=== PATIENT | male | born 1960 | race Caucasian/White ===

== ENCOUNTER 2017-08-25 07:45 | Emergency (ER) | payer BC ==
[~2017-08-25] VITALS: Ht 170.2 cm; Wt 101.0 kg
[~2017-08-25 07:45] MED LIST: AMOX1TAB10 PO; CETI10CA PO; GLYB1.252 PO; HYDR-3672 PO; METF500T3 PO
[2017-08-25 07:47] VITALS: Ht 170.2 cm; Wt 101.0 kg
[2017-08-25] MEDS ORDERED: OXYMETAZOLINE 0.05% 15 ML NAS SPRAY NASAL ONE (08:00)
[2017-08-25 09:45] VITALS: BP 119/92; PULSE 87; RESP 18
--- NOTE | 2017-08-25 11:27 | ERD ---
ER Documentation Chief Complaint Chief Complaint nose bleed onset today , was seen at another er on sunday for same HPI international account executive was used. The patient presents with epistaxis. The patient was seen at an outside hospital 2 days ago for similar symptoms. Today he presents with gross epistaxis from bilateral nares right greater than left. He denies any other easy bruising or bleeding, no headache no chest pain or no shortness of breath. ROS All systems reviewed and are negative except as per history of present illness. Medications Home Meds Active Scripts Amox Tr/Potassium Clavulanate (Amox Tr-K Clv 875-125 Mg Tab) 1 Tab Tablet, 1 TAB PO BID, #20 TAB Prov:CECI CASTRO SURGICAL TECHNOLOGIST 02/23/16 Hydralazine Hcl* (Hydralazine Hcl*) 50 Mg Tab, 50 MG PO Q6, #10 TAB Prov:CECI CASTRO SURGICAL TECHNOLOGIST 02/23/16 Cetirizine Hcl* (Zyrtec*) 10 Mg Capsule, 10 MG PO DAILY, #30 TAB.CHEW Prov:CECI CASTRO SURGICAL TECHNOLOGIST 02/22/16 Reported Medications Metformin* (Glucophage* XR) Unknown Strength Tab.sr.24h, PO DAILY, #30 TAB 02/22/16 Glyburide* (Glyburide*) Unknown Strength Tablet, PO WITH BREAKFAST, #30 TAB 02/22/16 Allergies Allergies: Coded Allergies: No Known Allergy (Verified , 01/27/14) PMhx/Soc History of Surgery: Yes (Gall Bladder removal) Anesthesia Reaction: No Hx Neurological Disorder: No Hx Respiratory Disorders: No Hx Cardiac Disorders: Yes (HTN; cholesterol) Hx Psychiatric Problems: No Hx Miscellaneous Medical Probl: Yes (DM2) Hx Alcohol Use: No Hx Substance Use: No Hx Tobacco Use: No Smoking Status: Never smoker FmHx Family History: No diabetes Physical Exam Vitals Vital Signs Date Time Temp Pulse Resp B/P Pulse Ox O2 Delivery O2 Flow Rate FiO2 08/25/17 09:45 87 18 119/92 95 Room Air 08/25/17 07:47 98.2 122 18 158/98 99 Physical Exam General: Well developed, well nourished, no acute distress Head: Normocephalic, atraumatic. Eyes: EOM intact ENT: Bleeding from bilateral nares right greater than left with dryness and cracking of the anterior Venous plexus. Neck: Full ROM Respiratory: No respiratory distress Cardiovascular: Good capillary refill Abdominal: Nondistended : Deferred MSK: No edema, no unilateral swelling, 5/5 strength Neurologic: Alert and oriented, moving all extremities, normal speech, steady gait Skin: No rash, no petechia or purpura Psych: Normal mood Results 24 hrs Current Medications Medications (Trade) Dose Ordered Sig/Lakeisha Route PRN Reason Start Time Stop Time Status Last Admin Dose Admin Oxymetazoline HCl (Afrin [place]) 2 spray ONCE ONCE NASAL 08/25/17 08:00 08/25/17 08:01 DC Procedures/MDM The patient's bilateral nares were packed with Afrin-soaked the patient cotton swabs. They are left in for 10 minutes and removed intact. On repeat inspection there is no retained foreign body. Has no further bleeding. The patient has no signs or symptoms concerning for coagulopathy. No indication for nasal packing. The patient can be safely discharged home. Education on how to control epistaxis was advised. I advised humidifier and Vaseline on the exterior nose prior to going to sleep. We discussed follow up with the patient's primary care doctor within 24 to 48 hours as needed. We also discussed return to the emergency room for worsening symptoms or worsening condition. Outpatient referral: [None required] Departure Diagnosis: Primary Impression: Epistaxis Condition: Stable Patient Instructions: Epistaxis (Adult) Referrals: [facility]) Usted se womack hecho un examen mdico de control que le indica que no est en laureano condicin que requiera tratamiento urgente en el Departamento de Emergencia. Un estudio ms profundo y el tratamiento de basurto condicin pueden esperar sin ningn riesgo hasta que usted sea atendida/o en el consultorio de basurto mdico o laureano cl jeffery. Es responsabilidad suya arreglar laureano leah para el seguimiento del fritz. MANEJO DE CONDICIONES NO URGENTES EN EL FUTURO 1) Si usted tiene un mdico de atencin primaria: Usted debera llamar a basurto mdico de atencin primaria antes de venir al departamento de emergencia. Despus de las horas de consultorio, basurto doctor o basurto asociado/a est disponible por telfono. El mdico o enfermero de [place] en el servicio telefnico puede asesorarle por ella medio para atender el problema, o fritz contrario se puede programar laureano leah. 2) Si usted no tiene un mdico de atencin primaria: Llame al mdico o clnica de referencia que aparece abajo arlene las horas de consultorio para hacer laureano leah para que le vean. CLINICAS: [facility] [phone] [facility] [phone] [facility] [phone] [facility] [phone] [address] [facility]. [facility] [phone] [address] [facility] [phone] [address] [facility]. [facility] () Usted se womack hecho un examen mdico de control que le indica que no est en laureano condicin que requiera tratamiento urgente en el Departamento de Emergencia. Un estudio ms profundo y el tratamiento de basurto condicin pueden esperar sin ningn riesgo hasta que usted sea atendida/o en el consultorio de basurto mdico o laureano cl jeffery. Es responsabilidad suya arreglar laureano leah para el seguimiento del fritz. MANEJO DE CONDICIONES NO URGENTES EN EL FUTURO 1) Si usted tiene un mdico de atencin primaria: Usted debera llamar a basurto mdico de atencin primaria antes de venir al departamento de emergencia. Despus de las horas de consultorio, basurto doctor o basurto asociado/a est disponible por telfono. El mdico o enfermero de [place] en el servicio telefnico puede asesorarle por ella medio para atender el problema, o fritz contrario se puede programar laureano leah. 2) Si usted no tiene un mdico de atencin primaria: Llame al mdico o condado institucions de referencia que aparece abajo arlene las horas de consultorio para hacer laureano leah para que le vean. SI USTED NO PUEDE PAGAR PARA KIMBER UN MEDICO puede ir a: [facility] [address] [place] [address] [facility] [address] [place] [address] [facility] [address] [place] [address] [facility] [address] [place], [place] [id number] Additional Instructions: Llame al doctor nombrado abajo (Referral Sources) MAANA y joe laureano LEAH PARA DENTRO DE LAUREANO SEMANA. Dgale a la secretaria que nosotros le instruimos hacer esta leah.Avise o llame si basurto condicin se empeora antes de la leah. TOSIN RITTER MD Aug 25, 2017 11:27
== END 2017-08-25 10:00 | disposition home or self-care (01) ==
LOC: E/R 07:45
DX: R04.0 Epistaxis (principal); I10 Essential (primary) hypertension; E11.9 Type 2 diabetes mellitus without complications; Z79.84 Long term (current) use of oral hypoglycemic drugs

== ENCOUNTER 2019-03-31 06:10 | Emergency (ER) | payer BC ==
[~2019-03-31] VITALS: Ht 165.1 cm; Wt 107.1 kg
[2019-03-31 06:13] VITALS: BP 164/98; PULSE 98; RESP 18; Ht 165.1 cm; Wt 107.1 kg
[2019-03-31] MEDS ORDERED: NAPR-985 PO (07:29)
--- NOTE | 2019-03-31 08:54 | ERD ---
ER Documentation Chief Complaint Chief Complaint R FFOT PAIN X'S 3 DAYS HPI 58-year-old male presenting with right foot pain x3 weeks. Patient states it's worse when he walks. He has been taking ibuprofen 800 mg with mild alleviation of symptoms. He denies any recent traumatic injury or accident. He is never had this before. He denies any numbness or tingling. Medical history is diabetes, hypertension and hypercholesterolemia. Surgical history is cystectomy. NKDA. Social history denies ROS All systems reviewed and are negative except as per history of present illness. Medications Home Meds Active Scripts Naproxen* (Naprosyn*) 500 Mg Tablet, 500 MG PO BID PRN for PAIN AND/OR INFLAMMATION, #30 TAB Prov:ORLY EDWARDS PA-C 03/31/19 Amox Tr/Potassium Clavulanate (Amox Tr-K Clv 875-125 Mg Tab) 1 Tab Tablet, 1 TAB PO BID, #20 TAB Prov:CECI CASTRO BIZTALK ARCHITECT 02/23/16 Hydralazine Hcl* (Hydralazine Hcl*) 50 Mg Tab, 50 MG PO Q6, #10 TAB Prov:CECI CASTRO BIZTALK ARCHITECT 02/23/16 Cetirizine Hcl* (Zyrtec*) 10 Mg Capsule, 10 MG PO DAILY, #30 TAB.CHEW Prov:CECI CASTRO BIZTALK ARCHITECT 02/22/16 Reported Medications Metformin* (Glucophage* XR) Unknown Strength Tab.sr.24h, PO DAILY, #30 TAB 02/22/16 Glyburide* (Glyburide*) Unknown Strength Tablet, PO WITH BREAKFAST, #30 TAB 02/22/16 Allergies Allergies: Coded Allergies: No Known Allergy (Verified , 01/27/14) PMhx/Soc History of Surgery: Yes (cholecystectomy) Anesthesia Reaction: No Hx Neurological Disorder: No Hx Respiratory Disorders: No Hx Cardiac Disorders: Yes (htn) Hx Psychiatric Problems: No Hx Miscellaneous Medical Probl: Yes (DM2) Hx Alcohol Use: Yes Hx Substance Use: No Hx Tobacco Use: No Smoking Status: Never smoker FmHx Family History: No diabetes, No coronary disease, No other Physical Exam Vitals Vital Signs Date Temp Pulse Resp B/P (MAP) Pulse Ox O2 O2 Flow FiO2 Time Delivery Rate 03/31/19 97.6 98 18 164/98 95 06:13 (120) Physical Exam GENERAL: The patient is well-appearing, well-nourished, in no acute distress CHEST: Clear to auscultation bilaterally. There are no rales, wheezes or rhonchi. HEART: Regular rate and rhythm. No murmurs, clicks, rubs or gallops. EXTREMITIES: Tender to palpation to plantar aspect of right foot with no deformity. Normal flexion and extension and strength 5 out of 5. Compartments soft. Pulses intact. NEUROLOGIC: Alert and oriented. Cranial nerves II through XII intact. Motor strength in all 4 extremities with 5 out of 5 strength. Sensation grossly intact. Normal speech and gait. SKIN: There is no apparent rash or petechiae. The skin is warm and dry. Procedures/MDM DIAGNOSTIC IMAGING REPORT Patient: KESHIA GILMAN : 1960 Age: 58 Sex: M MR #: [id number] DOS: 03/31/19 0635 Ordering MD: RUSH EDWARDS PA-C Location: [facility] Room/Bed: PROCEDURE: XR Right Foot. CLINICAL INDICATION: Right foot pain TECHNIQUE: AP, lateral and oblique views of the foot was obtained. The images were reviewed on a PACS workstation. COMPARISON: None. FINDINGS: The bones of the foot appear intact, with no evidence of fracture, dislocation, or subluxation. The joint spaces are preserved. The bone mineralization is normal. No significant soft tissue swelling is seen. An inferior calcaneal spur is present. IMPRESSION: An inferior calcaneal spur is present. Otherwise, no significant abnormalities are identified. MDM; 58-year-old male presenting with heel pain. I have low suspicion for acute fracture dislocation. I have low suspicion for infectious process. Have low suspicion for neuro deficit. I have low suspicion for compartment disorder. I believe patient's pain is likely associated with heel spur. Patient is discharged with supportive medications. Patient is told to get better supportive footwear. Patient is told symptoms change or worsen to return immediately to the ER. All questions answered at discharge. Departure Diagnosis: Primary Impression: Heel spur Condition: Stable Patient Instructions: Heel Spur Referrals: COMM[facility] CL[facility] YOU HAVE RECEIVED A MEDICAL SCREENING EXAM AND THE RESULTS INDICATE THAT YOU DO NOT HAVE A CONDITION THAT REQUIRES URGENT TREATMENT IN THE EMERGENCY DEPARTMENT. FURTHER EVALUATION AND TREATMENT OF YOUR CONDITION CAN WAIT UNTIL YOU ARE SEEN IN YOUR DOCTORS OFFICE WITHIN THE NEXT 1-2 DAYS. IT IS YOUR RESPONSIBILITY TO MAKE AN APPOINTMENT FOR FOLOW-UP CARE. IF YOU HAVE A PRIMARY DOCTOR --you should call your primary doctor and schedule an appointment IF YOU DO NOT HAVE A PRIMARY DOCTOR YOU CAN CALL OUR PHYSICIAN REFERRAL HOTLINE AT IF YOU CAN NOT AFFORD TO SEE A PHYSICIAN YOU CAN CHOSE FROM THE FOLLOWING [facility] CL[facility] [address] [facility] [address] [facility] [facility] [address] [facility] [address] [facility] [address]. [facility] [address] Additional Instructions: FOLLOW UP WITH YOUR PRIMARY CARE PHYSICIAN TOMORROW.Return to this facility if you are not improving as expected. ORLY EDWARDS PA-C Mar 31, 2019 08:54
== END 2019-03-31 07:41 | disposition home or self-care (01) ==
LOC: FTE 06:10
DX: M77.31 Calcaneal spur, right foot (principal); I10 Essential (primary) hypertension; E11.9 Type 2 diabetes mellitus without complications; Z79.84 Long term (current) use of oral hypoglycemic drugs
CPT/HCPCS: 73630